=== PATIENT | female | born 1975 | race African-American/Black ===

== ENCOUNTER 2019-08-31 06:21 | Emergency (ER) | payer MEDICAID ==
[~2019-08-31] VITALS: Ht 160 cm; Wt 63.5 kg
[2019-08-31 06:37] VITALS: BP 153/113
--- NOTE | 2019-08-31 06:37 | NUR ---
PT TAKEN TO BED 5
--- NOTE | 2019-08-31 06:49 | NUR ---
44 Y/O FEMALE C/O VAGINAL DISCHARGE WITH FOUL ODOR WITH PAIN TO PELVIS X 4 MONTHS. PT DENIES VAGINAL BLEEDING. PT ALSO STATES RT EYE PAIN, BLURRED VISION, AND GREEN DISCHARGE TO RT EYE. 10/10 ITCHING/BURNING PAIN TO RT EYE. PT DENIES N/V/D, AFEBRILE AT THIS TIME. RR EVEN AND UNLABORED, PT SITTING ON BED CALM. VSS. MEDHX: HTN, SCHIZOPHRENIA, ASTHMA ALLERGIES: MOTRIN
[2019-08-31 07:19] LABS: APPEARANCE,URINE CLEAR (CLEAR); BILIRUBIN,URINE NEGATIVE (NEGATIVE); BLOOD, URINE TRACE-I (NEGATIVE); COLOR,URINE YELLOW (YELLOW); LEUKOCYTE ESTERASE ,URINE NEGATIVE (NEGATIVE); NITRITE, URINE NEGATIVE (NEGATIVE); UGLUCOSE NEGATIVE (NEGATIVE)
--- NOTE | 2019-08-31 07:22 | NUR ---
REPORT GIVEN TO RAZA ODELL. TRANSFER OF CARE AT THIS TIME.
[2019-08-31 07:39] LABS: RBC,URINE 0-5 /HPF (0-5); URINE AMORPHOUS URATE 1+ /HPF (None Seen); WBC,URINE 0-5 /HPF (0-5)
[2019-08-31 09:07] VITALS: BP 160/89
[2019-08-31] MEDS ORDERED: MECLIZINE 25 MG TAB PO ONE (09:10)
[2019-08-31] MEDS ORDERED: PROMETHAZINE 25 MG/ML VIAL IM ONE (09:10)
[2019-08-31] MEDS ORDERED: ALBUTEROL SULFATE/IPRATROPIU 3 ML SOL IH ONE (09:10)
[2019-08-31] MEDS ORDERED: hydrOXYzine HCL 25 MG TAB PO ONE (09:10)
--- NOTE | 2019-08-31 09:17 | NUR ---
AWAKE AND ALERT VERBALLY RESPONSIVE NO SOB NOTED AT THIS TIME PATIENT REFUSED [facility] THERAPY AND RES[IRATORY DRUG JOSE R/RAZA NOTIFIED
--- NOTE | 2019-08-31 09:41 | NUR ---
NOTIFIED DR. MACKEY THAT PT REFUSED INFLUENZA SWAB.
[2019-08-31 10:06] LABS: BARBITURATE, URINE NEG. ng/ml (NEG <=200); BENZODIAZEPINE, URINE NEG. ng/mL (NEG <=200); CANNABINOID, URINE POS. ng/mL (NEG <=50); COCAINE, URINE POS. ng/mL (NEG <=300); OPIATE, URINE NEG. ng/mL (NEG <=2000); PHENCYCLIDINE SCREEN,URINE NEG. ng/mL (NEG <=25)
--- NOTE | 2019-08-31 11:49 | NUR ---
Patient discharged with v/s stable. Written and verbal after care instructions given and explained. Patient alert, oriented and verbalized understanding of instructions. Ambulatory with steady gait. All questions addressed prior to discharge. ID band removed. Patient advised to follow up with PMD. Rx of VISTARIL AND DOXYCYCLINE given. Patient educated on indication of medication including possible reaction and side effects. Opportunity to ask questions provided and answered.
--- NOTE | 2019-08-31 11:50 | NUR ---
PT DECLINED OFFER FOR BUS PASS AND RESOURCE PACKET BUT WAS PROVIDED WITH MEAL UPON DISCHARGE. PT LEFT FACILITY WITH WEATHER APPRIORATE CLOTHING.
== END 2019-08-31 11:49 | disposition home or self-care (01) ==
LOC: MED 06:21
DX: B34.9 Viral infection, unspecified (principal); J45.909 Unspecified asthma, uncomplicated; I10 Essential (primary) hypertension; F12.10 Cannabis abuse, uncomplicated; F20.9 Schizophrenia, unspecified; R05 Cough; R09.81 Nasal congestion; R11.0 Nausea; Z79.899 Other long term (current) drug therapy
CPT/HCPCS: 80305; 81001; 81025; 96372; 99283; J2550; J8597; J7620